=== PATIENT | female | born 1990 | race Hispanic/Latino ===

== ENCOUNTER 2019-06-09 19:25 | Emergency (ER) | payer OTHER ==
[~2019-06-09 19:25] MED LIST: LEVO500T2 PO
[2019-06-09] MEDS ORDERED: ACETAMINOPHEN EXTRA STRENGTH 500 MG TABLET ONE (19:47)
[2019-06-09 20:00] LABS: RAPID GROUP A STREP NEGATIVE (NEGATIVE)
[2019-06-09] MEDS ORDERED: IBUPROFEN 600 MG TABLET ONE (20:51)
== END 2019-06-09 21:27 | disposition home or self-care (01) ==
LOC: EDH 19:25
DX: J20.9 Acute bronchitis, unspecified (principal); Z98.890 Other specified postprocedural states; Z72.0 Tobacco use
CPT/HCPCS: 71046; 81025; 87804; 87880